=== PATIENT | male | born 1960 | race Caucasian/White ===

== ENCOUNTER 2016-07-28 19:41 | Emergency (ER) | payer MEDICAID, OTHER ==
[~2016-07-28] VITALS: Ht 167.6 cm; Wt 82.6 kg
[2016-07-28 19:43] VITALS: BP 145/97
== END 2016-07-28 22:43 | disposition home or self-care (01) ==
LOC: ED 22:10
DX: M13.111 Monoarthritis, not elsewhere classified, right shoulder (principal); I10 Essential (primary) hypertension; Z87.891 Personal history of nicotine dependence
CPT/HCPCS: 99284